=== PATIENT | female | born 1990 | race Hispanic/Latino ===

== ENCOUNTER 2016-06-30 11:33 | Emergency (ER) | payer SELFPAY ==
[2016-06-30 12:32] LABS: BASOPHILS 0.7 % (0.0-2.0); EOSINOPHILS 1.2 % (0.0-6.0); EOSINOPHILS# 0.1 X 10^3uL (0.0-0.4); HEMATOCRIT 44.4 % (36.0-48.0); HEMOGLOBIN 15.3 g/dL (12.0-16.0); LYMPHOCYTES 25.6 % (20.0-40.0); LYMPHOCYTES# 1.7 X 10^3uL (0.8-3.8); MEAN CELL VOLUME 85.4 fL (80.0-100.0); MEAN CORPUS. HGB CONCENTRATION 34.4 g/dL (32.0-36.0); MEAN CORPUSCULAR HEMOGLOBIN 29.4 pg (29.0-35.0); MEAN PLATELET VOLUME 8.2 fL (7.4-10.4); MONOCYTES 6.3 % (2.0-10.0); MONOCYTES# 0.4 X 10^3uL (0.2-1.0); NEUTROPHILS 66.2 % (54.0-75.0); NEUTROPHILS# 4.4 X 10^3uL (2.6-6.7); PLATELET COUNT 258 X 10^3uL (130-440); RED CELL DISTRIBUTION WIDTH 12.6 % (11.5-14.5); WHITE BLOOD COUNT 6.6 X 10^3uL (3.9-10.7)
[2016-06-30 12:41] LABS: ALBUMIN 4.3 g/dL (3.5-5.0); ALKALINE PHOSPHATASE 66 U/L (38-126); ALT 33 U/L (9-52); AST 24 U/L (14-36); BILIRUBIN, DIRECT 0.1 mg/dL (0.0-0.4); BILIRUBIN, TOTAL 0.5 mg/dL (0.2-1.3); BLOOD UREA NITROGEN 12 mg/dL (7-17); CALCIUM 9.4 mg/dL (8.4-10.2); CHLORIDE 104 mmol/L (98-107); CREATININE 0.6 mg/dL (0.5-1.0); EST GLOMERULAR FILTRATION RATE > 60 mL/min; GLUCOSE 105 mg/dL (70-100); LIPASE 81 U/L (23-300); POTASSIUM 3.8 mmol/L (3.5-5.1); SODIUM 138 mmol/L (137-145); TOTAL PROTEIN 7.6 g/dL (6.3-8.2)
[2016-06-30] MEDS ORDERED: HYDROmorphone HCL 1 MG/ML SYR ONE (12:48)
[2016-06-30] MEDS ORDERED: ONDANSETRON HCL 4 MG/2 ML VIAL ONE (12:48)
[2016-06-30] MEDS ORDERED: KETOROLAC TROMETHAMINE 30 MG/ML VIAL ONE (12:48)
--- NOTE | 2016-06-30 14:13 | ER NURSING DOCUMENTATION ---
Nurse's Notes [facility] Name:Sara Robertson Age:25 yrs Sex:Female :1990 Arrival Date:06/30/2016 Time:11:33 Bed3 Private MD: Diagnosis:Ovarian Cyst Presentation: 06/30 11:37 Acuity: MARCELLO 3 tg 12:52 Presenting complaint: Patient states: [Translation ipad service utilized for tg comminucation]. Pt reports that she had a mild stabbing pain in her lower ABD for 3 weeks. Became much more severe at 0300 today. Worse when voiding or attempting to have a BM. Seen at [facility], ordered for next week, but pain is too severe to wait. Denies being . Transition of care: patient was not received from another setting of care. 12:52 Method Of Arrival: Private Vehicle tg Triage Assessment: 11:40 General: Appears uncomfortable, Behavior is cooperative. Pain: Complains of pain in tg suprapubic area Quality of pain is described as stabbing. Neuro: Level of Consciousness is awake, alert. Cardiovascular: Capillary refill < 3 seconds. Respiratory: Airway is patent Respiratory effort is even, unlabored. GI: Reports lower abdominal pain, vomiting. : Reports pain. Derm: Skin is pink, warm & dry. Historical: - Allergies: No known drug Allergies; - Home Meds: 1. ibuprofen PRN - PMHx: None; - PSHx: None; - Tetanus: unknown. - Ebola Screening: : Patient negative for fever greater than or equal to 101.5 degrees Fahrenheit, and additional compatible Ebola Virus Disease symptoms. Patient denies exposure to infectious person. Patient denies travel to an Ebola-affected area in the 21 days before illness onset. No symptoms or risks identified at this time. . - Immunization history: Flu Vaccine None. - Social history: Smoking status: Patient states was never smoker of tobacco. Screenin:59 Infectious Disease Risk Unable to Obtain. Abuse screen: Denies threats or abuse. Denies tg injuries from another. Nutritional screening: No deficits noted. Assessment: 13:00 GI: Abd is soft Abdomen is tender to palpation in suprapubic area. tg Vital Signs: 11:40 BP 108 / 75; Pulse 71; Resp 16; Temp 98; Pulse Ox 95% on R/A; Weight 90.72 kg (R); tg Height 5 ft. 8 in. (173 cm); Pain 9/10; 14:11 BP 97 / 62; Pulse 74; Resp 14; Pulse Ox 93% on R/A; Pain 4/10; tg 11:40 Body Mass Index 30.31 (90.72 kg, 173 cm) tg ED Course: 11:34 Patient arrived in ED. ds 11:37 Margarito Lester, RN is Primary Nurse. tg 11:37 Triage completed. tg 12:18 Felipe Winn MD is Attending Physician. tl1 12:44 Patient moved to [facility]. mk 13:00 Valuables Remains with patient. tg 13:24 Patient moved back from [facility]. mk 13:33 [facility] is Referral Physician. tl1 13:34 Yasmani Helms MD is Referral Physician. tl1 Administered Medications: 12:30 Drug: NS 0.9% 1000 ml; Route: IV; Rate: bolus; Site: left antecubital; Delivery: tg [place] Tubing; 13:52 Follow up: IV Status: Completed infusion; IV Intake: 1000ml tg 12:44 Drug: Zofran 4 mg; Route: IVP; Infused Over: 2 mins; Site: left antecubital; tg 13:51 Follow up: Response: No adverse reaction tg 12:44 Drug: Dilaudid 0.5 mg; Route: IVP; Site: left antecubital; tg 13:51 Follow up: Response: No adverse reaction; Pain is decreased tg 13:40 Drug: Toradol 15 mg; Route: IVP; Site: left antecubital; tg 13:58 Follow up: Response: No adverse reaction tg Point of Care Testing: Urine Dip: 12:08 pH: 6; ; Specific [place]: 1.03; Ketones: Trace; Glucose: Negative; Protein: Negative; tg Leukocytes: Negative; Nitrite: Negative ; Blood: Negative; Bilirubin: Negative ; Urobilinogen: Normal Intake: 13:52 IV: 1000ml; Total: 1000ml. tg Outcome: 13:34 Discharge ordered by . tl1 14:11 Discharged to home ambulatory, with friend. tg 14:11 Condition: stable 14:11 Discharge Assessment: Patient awake, alert and oriented x 3. No cognitive and/or functional deficits noted. Patient verbalized understanding of disposition instructions. 14:11 Instructed on discharge instructions, follow up and referral plans. medication usage, Prescriptions given X 2. 14:11 IV D/Rajiv 14:12 Patient left the ED. tg 07/01 09:33 Discharge F/U Call: Spoke with: patient. Are you having any pain? no. How are you lp managing your pain? Did your discharge instructions answer all of your questions? yes Signatures: Margarito Lester RN RN tg Selam Gibson RN RN lp Srot, Ashley, Reg Reg Joya Desai Tom, MD MD tl1
--- NOTE | 2016-06-30 14:35 | US REPORT ---
HISTORY: Right adnexal pain. COMPARISON: None. FINDINGS: Transabdominal and endovaginal sonography of the pelvis have been obtained. Endovaginal imaging was p erformed to better evaluate the endometrium and ovaries. The uterus is retroverted and measures 5.1 x 4.4 x 2.8 centimeters. The endometrium is normal in appearance with a thickness of 7 mm. The right ovary is enlarged and measures 4.8 x 3.6 x 4 centimeters. This contains a 4.1 x 2.5 cm comp raya avascular cyst which probably represents a hemorrhagic cyst. The left ovary is normal in size and echogenicity and measures 3.2 x 2 x 1.8 centimeters. Flow is visualized in both ovaries by color Do ppler. There is no adnexal mass. There is free fluid within the right adnexa. No free fluid in the cul-de-sa c. Transabdominal imaging confirms the endovaginal findings. IMPRESSION: 1. Uterus is retroverted. 2. 2.5 x 4.1 cm complex avascular right ovarian cysts which probably represents a hemorrhagic cyst. 3. Free fluid within the right adnexa. Final Electronic Signature: This report was electronically signed by Darvin Vasquez MD on 06/30/2016 2: 33 PM. [facility] /
--- NOTE | 2016-06-30 14:39 | US REPORT ---
Radiology report Pelvic ultrasound June 30, 2016 CLINICAL HISTORY: right adnexal pain FINDINGS: Transabdominal and endovaginal imaging was performed. The uterus measures approximately 5.4 x 2.8 x 4 .4 cm. The endometrial stripe is normal, measuring 7 mm. No focal abnormalities. The left ovary measures approximately 18 x 32 x 20 mm. Small follicles are noted. There is normal blo od flow. The right ovary measures approximately 48 x 40 x 36 mm. It is filled mostly with a heterogeneous, com plex masslike area felt to be a hemorrhagic cyst this measures approximately 41 x 25 x 32 mm. There i s normal blood flow to the surrounding ovarian tissue. There is no free fluid. IMPRESSION: Complex area in the right ovary felt to be a hemorrhagic cyst measuring up to 41 x 25 x 32 mm. No evidence for torsion, or free fluid. The uterus is normal. Final Electronic Signature: This report was electronically signed by Gonzalez Leary MD on 06/30/2016 2 :37 PM. mark /
--- NOTE | 2016-07-02 14:12 | ER PHYSICIAN DOCUMENTATION ---
Physician Documentation [facility] Name:Sara Robertson Age:25 yrs Sex:Female :1990 Arrival Date:06/30/2016 Time:11:33 Bed3 Private MD: Felipe Poe Disposition: 06/30 14:21 Chart complete. tl1 Disposition: 06/30/16 13:34 Discharged to Home/Self Care. Impression: Ovarian Cyst. - Condition is Good. - Discharge Instructions: OVARIAN CYST. - Prescriptions for [place] 5- 325 mg Oral - take 1 tablet by ORAL route every 6 hours As needed; 12 tablet. Zofran 4 mg Oral Tablet - take 1-2 tablet by ORAL route every 4-6 hours As needed; 10 tablet. - Medical Reconciliation form form. - Follow up: [facility]; When: 2 - 3 days; Reason: Recheck today's complaints, Continuance of care. Follow up: Yasmani Helms MD; When: 4- 6 days; Reason: Recheck today's complaints, Continuance of care. - Problem is new. - Symptoms have improved. HPI: 11:40 This 25 yrs old Female presents to ER via Private Vehicle with complaints of tl1 Abdominal Pain. 11:40 The patient presents with abdominal pain right lower quadrant, in the left lower tl1 quadrant. Onset: The symptoms/episode began/occurred gradually, 3 week(s) ago. The symptoms do not radiate. Associated signs and symptoms: Pertinent negatives: anorexia, blood in stools, diarrhea, dysuria, fever, hematuria, vaginal discharge, vomiting. The symptoms are described as constant, dull, waxing/waning. The patient has been recently seen by a physician: in [facility].. She was scheduled for a pelvic U/S 07/09 after a recent visit to [facility] for the same symptoms. Historical: - Allergies: No known drug Allergies; - Home Meds: 1. ibuprofen PRN - PMHx: None; - PSHx: None; - Tetanus: unknown. - Ebola Screening: : Patient negative for fever greater than or equal to 101.5 degrees Fahrenheit, and additional compatible Ebola Virus Disease symptoms. Patient denies exposure to infectious person. Patient denies travel to an Ebola-affected area in the 21 days before illness onset. No symptoms or risks identified at this time. . - Immunization history: Flu Vaccine None. - Social history: Smoking status: Patient states was never smoker of tobacco. ROS: 14:17 Abdomen/GI: Positive for abdominal pain. tl1 14:17 All other systems are negative. Exam: 14:17 Constitutional: This is a well developed, well nourished patient who is awake, alert, tl1 and in no acute distress. Head/Face: Normocephalic, atraumatic. Eyes: Pupils equal round and reactive to light, extra-ocular motions intact. Lids and lashes normal. Conjunctiva and sclera are non-icteric and not injected. Cornea within normal limits. Periorbital areas with no swelling, redness, or edema. Cardiovascular: Regular rate and rhythm with a normal S1 and S2. No gallops, murmurs, or rubs. Normal PMI, no JVD. No pulse deficits. 14:17 Respiratory: Lungs have equal breath sounds bilaterally, clear to auscultation and tl1 percussion. No rales, rhonchi or wheezes noted. No increased work of breathing, no retractions or nasal flaring. 14:17 Abdomen/GI: Inspection: abdomen appears normal, Bowel sounds: normal, Palpation: soft, moderate abdominal tenderness, in the right lower quadrant and left lower quadrant, mass, is not appreciated, Liver: no appreciated palpable abnormalities. 14:17 : CVA tenderness, is absent. 14:17 Skin: Exam negative for acute changes. 14:17 Neuro: Exam negative for acute changes. Vital Signs: 11:40 BP 108 / 75; Pulse 71; Resp 16; Temp 98; Pulse Ox 95% on R/A; Weight 90.72 kg (R); tg Height 5 ft. 8 in. (173 cm); Pain 9/10; 14:11 BP 97 / 62; Pulse 74; Resp 14; Pulse Ox 93% on R/A; Pain 4/10; tg 11:40 Body Mass Index 30.31 (90.72 kg, 173 cm) tg MDM: 12:18 Patient medically screened. tl1 13:30 Differential diagnosis: appendicitis, diverticulitis, Ectopic , Endometriosis, tl1 Ovarian Torsion, Tubal Ovarian Abcess, ovarian cyst. Data reviewed: vital signs, nurses notes, lab test result(s), radiologic studies, ultrasound, and as a result, I will discharge patient. Test interpretation: by ED physician or midlevel provider: not applicable. Counseling: I had a detailed discussion with the patient and/or guardian regarding: the historical points, exam findings, and any diagnostic results supporting the discharge/admit diagnosis, radiology results, the need for outpatient follow up, to return to the emergency department if symptoms worsen or persist or if there are any questions or concerns that arise at home. ED course: I discussed her care with Angela at [facility], and she will help get the patient into clinic, hopefully, Thursday, 2 days from now to see Dr Helms.. 06/30 12:39 Order name: CBC AUTO DIF, MDIF/RMOR IF IND; Complete Time: 13:33 EDMS 06/30 13:33 Interpretation: WHITE BLOOD COUNT 6.6; HEMOGLOBIN 15.3; HEMATOCRIT 44.4; PLATELET COUNT tl1 258. 06/30 12:49 Order name: BASIC METABOLIC PANEL; Complete Time: 13:33 EDMS 06/30 13:33 Interpretation: SODIUM 138; POTASSIUM 3.8; CHLORIDE 104; CARBON DIOXIDE 25; GLUCOSE tl1 105; BLOOD UREA NITROGEN 12; CREATININE 0.6. 06/30 12:49 Order name: HEPATIC PANEL; Complete Time: 13:33 EDMS 06/30 13:33 Interpretation: Normal. tl1 06/30 12:49 Order name: LIPASE; Complete Time: 13:33 EDMS 06/30 13:33 Interpretation: Normal: LIPASE 81. tl1 06/30 13:22 Order name: HCG, SERUM; Complete Time: 13:33 EDMS 06/30 13:49 Interpretation: HCG, SERUM NEGATIVE. tl1 06/30 12:07 Order name: NPO; Complete Time: 13:51 tg 06/30 12:07 Order name: Urine Dip; Complete Time: 12:07 tg Dispensed Medications: 12:30 Drug: NS 0.9% 1000 ml; Route: IV; Rate: bolus; Site: left antecubital; Delivery: tg [place] Tubing; 13:52 Follow up: IV Status: Completed infusion; IV Intake: 1000ml tg 12:44 Drug: Zofran 4 mg; Route: IVP; Infused Over: 2 mins; Site: left antecubital; tg 13:51 Follow up: Response: No adverse reaction tg 12:44 Drug: Dilaudid 0.5 mg; Route: IVP; Site: left antecubital; tg 13:51 Follow up: Response: No adverse reaction; Pain is decreased tg 13:40 Drug: Toradol 15 mg; Route: IVP; Site: left antecubital; tg 13:58 Follow up: Response: No adverse reaction tg Point of Care Testing: Urine Dip: 12:08 pH: 6; ; Specific [place]: 1.03; Ketones: Trace; Glucose: Negative; Protein: Negative; tg Leukocytes: Negative; Nitrite: Negative ; Blood: Negative; Bilirubin: Negative ; Urobilinogen: Normal Signatures: Margarito Lester RN RN tg Felipe Winn MD MD tl1
== END 2016-06-30 14:12 | disposition home or self-care (01) ==
LOC: ER 11:33
DX: N83.201 Unspecified ovarian cyst, right side (principal)
CPT/HCPCS: 76830; 76856; 80048; 80076; 83690; 84703; 85025; 96361; 96374; 96375; 99284; J1170; J1885; J2405